=== PATIENT | male | born 1960 | race African-American/Black ===

== ENCOUNTER 2016-12-08 13:31 | Emergency (ER) | payer OTHER ==
[2016-12-08 13:44] VITALS: BP 129/75; PULSE 965; RESP 16; TEMP 97.7
--- NOTE | 2016-12-08 14:03 | ED ---
ENT HPI - General Chief complaint: ENT Stated complaint: Facial Swelling Time Seen by Provider: 12/08/16 13:54 Source: patient Mode of arrival: ambulatory Limitations: no limitations - History of Present Illness Initial comments: Patient is a 56-year-old male presenting to the emergency department with complaints of right ear pain. Onset of symptoms started yesterday. MD complaint: ear pain Onset/Timin -: days(s) Location: R ear Severity: mild, moderate Severity scale (1-10): 6 Quality: aching Consistency: intermittent Improves with: none Worsens with: none Associated Symptoms: hearing loss, other (Patient complains of swelling to his to left side of his face inferior to his right ear) - Related Data Home Medications Medication Instructions Recorded Confirmed Cyclobenzaprine [Flexeril] 20 mg PO TID 12/08/16 12/08/16 Divalproex [Depakote] 2,000 mg PO HS 12/08/16 12/08/16 Gabapentin 600 mg PO TID 12/08/16 12/08/16 Lisinopril-Hctz 20-25 mg 1 tab PO DAILY 12/08/16 12/08/16 [Zestoretic 20-25] QUEtiapine FUMARATE [Seroquel] 300 mg PO DAILY 12/08/16 12/08/16 QUEtiapine FUMARATE [Seroquel] 600 mg PO HS 12/08/16 12/08/16 Previous Rx's Medication Instructions Recorded Amoxic-Pot Clav 875-125Mg 1 tab PO Q12HR #20 tablet 12/08/16 [Augmentin 875-125] Ofloxacin 0.3% Otic Soln [Floxin 10 drops BOTH EARS BID #1 bottle 12/08/16 0.3% Otic Soln] Allergies Allergy/AdvReac Type Severity Reaction Status Date / Time No Known Allergies Allergy Verified 12/08/16 13:39 Review of Systems ROS Statement: Those systems with pertinent positive or pertinent negative responses have been documented in the HPI. ROS Other: All systems not noted in ROS Statement are negative. Past Medical History Past Medical History: Hypertension Additional Past Medical History / Comment(s): back pain History of Any Multi-Drug Resistant Organisms: None Reported Past Surgical History: Back Surgery Past Psychological History: ADD/ADHD, Anxiety, Bipolar, Depression, Panic Disorder, PTSD Smoking Status: Current every day smoker Past Alcohol Use History: None Reported Past Drug Use History: None Reported General Exam Limitations: no limitations General appearance: alert, in no apparent distress Head exam: Present: atraumatic, normocephalic, normal inspection Eye exam: Present: normal appearance Expanded TM/Canal exam: Erythema: Right TM, Effusion: Right TM, Loss of Landmarks: Right TM Mouth exam: Present: normal external inspection, tongue normal. Absent: drooling, trismus Throat exam: normal inspection. negative: tonsillar erythema, tonsillomegaly, tonsillar exudate, R peritonsillar mass, L peritonsillar mass Neck exam: Present: tenderness (Tenderness and swelling to submandibular gland) , full ROM, lymphadenopathy. Absent: meningismus, thyromegaly Respiratory exam: Present: normal lung sounds bilaterally. Absent: respiratory distress, wheezes, rales, rhonchi, stridor Cardiovascular Exam: Present: regular rate, normal rhythm, normal heart sounds. Absent: systolic murmur, diastolic murmur, rubs, gallop, clicks GI/Abdominal exam: Present: soft, normal bowel sounds. Absent: distended, tenderness, guarding, rebound, rigid Extremities exam: Present: normal inspection, full ROM. Absent: tenderness Back exam: Present: normal inspection Neurological exam: Present: alert, oriented X3, other (No focal deficits noted) . Absent: motor sensory deficit Psychiatric exam: Present: normal affect, normal mood Skin exam: Present: warm, dry, intact, normal color Course Vital Signs 12/08/16 13:41 Temperature 97.7 F Pulse Rate 965 H Respiratory 16 Rate Blood Pressure 129/75 O2 Sat by Pulse 99 Oximetry Medical Decision Making - Medical Decision Making Otitis media with effusion. Lymphadenopathy to submandibular gland. Patient prescribed Augmentin and Floxin. Patient instructed to follow-up her main care physician and ENT service. Patient started to return to the emergency department if symptoms do not improve or get worse. Patient agrees with treatment plan. Discussed instructions and return parameters reviewed. Disposition Clinical Impression: Acute otitis media with effusion of right ear, Swelling, lymph nodes Disposition: HOME SELF-CARE Condition: Good Instructions: Lymphadenopathy (ED), Otitis Media (ED), Earache (ED) Additional Instructions: Finish antibiotics as prescribed. Continue Motrin or Tylenol for pain. May apply warm compresses for comfort. Follow-up primary care physician. Follow- up with ENT if needed. Please return to the emergency department if symptoms do not improve or get worse. Prescriptions: Amoxic-Pot Clav 875-125Mg [Augmentin 875-125] 1 tab PO Q12HR #20 tablet Ofloxacin 0.3% Otic Soln [Floxin 0.3% Otic Soln] 10 drops BOTH EARS BID #1 bottle Referrals: Amanda Coats MD [Primary Care Provider] - 1-2 days Jose Daniel Blount MD [STAFF PHYSICIAN] - 1-2 days Time of Disposition: 14:03
== END 2016-12-08 14:19 | disposition home or self-care (01) ==
LOC: EC 13:31
DX: H65.191 Other acute nonsuppurative otitis media, right ear (principal); R59.9 Enlarged lymph nodes, unspecified; I10 Essential (primary) hypertension; F31.9 Bipolar disorder, unspecified; F90.9 Attention-deficit hyperactivity disorder, unspecified type; F41.9 Anxiety disorder, unspecified; F43.10 Post-traumatic stress disorder, unspecified; F41.0 Panic disorder [episodic paroxysmal anxiety]; F17.200 Nicotine dependence, unspecified, uncomplicated; Z79.899 Other long term (current) drug therapy
CPT/HCPCS: 99283